=== PATIENT | female | born 1955 | race Caucasian/White ===

== ENCOUNTER 2025-03-09 10:33 | Emergency (ER) | payer OTHER, MEDICAID ==
[~2025-03-09] VITALS: Ht 167.6 cm; Wt 139.9 kg
[2025-03-09 11:51] VITALS: BP 131/88; PULSE 102; RESP 20; TEMP 97.9; O2SAT 95
[2025-03-09] MEDS: NEOMYCIN-BACITRACIN-POLYM UNITDOSE PKG TOP OINT TOP ONE (11:51)
[2025-03-09] MEDS: methylPREDNISolone SOD SUCC 125 MG/2 ML VL IM ONE (12:20)
[2025-03-09] MEDS: KETOROLAC TROMETH 30 MG/ML 1ML VIAL IM ONE (12:20)
--- NOTE | 2025-03-09 13:20 | ED.PDOC ---
Back pain HPI HPI Comments 69 year F presents for RLBP that radiates down the right posterior leg. In his aggravated with prolonged ambulation and standing in his alleviated at rest. Taking gabapentin and ibuprofen with some improvement. Denies history of chronic steroid use or history of osteoporosis Denies any history of cancer Denies fevers chills night sweats nausea vomiting unintentional weight loss Denies IV drug use history of HIV/TB Denies abdominal "tearing" pain Denies syncope Denies urinary incontinence or urinary changes Denies numbness tingling of the groin or inner thigh Denies previous back procedure or surgery Chief Complaint: Fall Injury Time Seen by MD: 11:33 Primary Care Provider: RADHA Reviewed Notes: Nurses Notes, Medications, Allergies Allergies: Coded Allergies: Cephalexin (Verified Allergy, Unknown, 03/09/25) Penicillins (Verified Allergy, Unknown, 03/09/25) Information Source: Patient Mode of Arrival: Ambulatory Past Medical History PAST MEDICAL HISTORY: DM, HTN Surgical History: Denies all surgeries DIALYSIS EQUIPMENT TECHNICIAN History: No Pertinent DIALYSIS EQUIPMENT TECHNICIAN History Family History Family History: Reviewed,noncontributory to illness Social History Smoker: Non-Smoker Alcohol: Denies ETOH Use Drugs: Denies Drug Use All Other Systems: Reviewed and Negative (PER HPI) Physical Exam General Appearance: No Apparent Distress, Normal HEENT: Normal ENT Inspection, Pharynx Normal, TMs Normal Neck: Full Range of Motion, Non-Tender, Normal, Normal Inspection Respiratory: Chest Non-Tender, Lungs Clear, No Accessory Muscle Use, No Respiratory Distress, Normal Breath Sounds Cardiovascular: No Edema, No JVD, No Murmur, No Gallop, Normal Peripheral Pulses, Regular Rate/Rhythm Breast Exam: Deferred Gastrointestinal: No Organomegaly, Non Tender, No Pulsatile Mass, Normal Bowel Sounds, Soft Genitalia: Deferred Pelvic: Deferred Rectal: Deferred Extremities: No calf tenderness, Normal capillary refill, Normal inspection, Normal range of motion, Non-tender, No pedal edema Musculoskeletal : Apperance: Normal Neurologic: Alert, cell cleaner II-XII nml as Tested, No Motor Deficits, Normal Affect, Normal Mood, No Sensory Deficits Cerebellar Function: Normal Reflexes: Normal Skin: Dry, Normal Color, Warm Lymphatic: No Adenopathy Was a procedure done? Was a procedure done?: No Images 1 - Lumbar paraspinal tenderness to palpation. Right straight leg raise test positive. No bony step-offs on palpation. Back Pain Differential Dx Differential Diagnosis: Musculoskeletal Pain X-Ray, Labs, Meds, VS Vital Signs Date Time Temp Pulse Resp B/P (MAP) Pulse Ox O2 Delivery O2 Flow Rate FiO2 03/09/25 11:51 97.9 102 18 131/88 (102) 95 97.9 03/09/25 11:51 102 20 95 Room Air 03/09/25 10:44 97.4 104 20 128/90 (103) 95 97.4 Current Medications Medications (Trade) Dose Ordered Sig/Adam Route Start Time Stop Time Status Last Admin Ketorolac Tromethamine (Toradol Injection) 30 mg ONCE ONCE IM 03/09/25 12:15 03/09/25 12:16 DC 03/09/25 12:20 Methylprednisolone Sodium Succinate (Solu Medrol) 125 mg ONCE ONCE IM 03/09/25 12:15 03/09/25 12:16 DC 03/09/25 12:20 X-Ray, Labs, Meds, VS Comment Given patient's history and exam: Sciatica, cord compression, cauda equina, aortic dissection, Guillain-[place] syndrome, epidural hematoma/abscess were all considered. Patient not toxic or ill-appearing. Vital signs within acceptable limits. Positive straight leg raise on exam with tenderness to the buttock consistent with sciatica. No vertebral point tenderness noted over the T or L- spine. No paraspinal muscle tenderness noted. No fever or IV drug use the. The differential for an acute vascular, neurologic, malignant, or infectious etiologies is much less likely given his/her presentation. The patient does not warrant a radiological exam at this time. The patient was given medication for pain control in the ED. Advised patient to try to take alternating Ibuprofen and Tylenol to help with inflammation of the sciatic nerve and surrounding tissues and should try to do low back stretches but also try to rest and avoid excessive sitting and bending. On reassessment, the patient's symptoms improved, and patient was able to ambulate without assistive devices. The patient will f/u with PMD to see if his/her symptoms noreen. An MRI may need to be ordered if the symptoms worsen or do not improve over time. The patient was counseled in regard to the diagnosis and management of the condition and verbalized understanding of this. The patient understands to return to the ER or seek immediate medical attention if the symptoms worsen or return. Time of 1ST Reevaluation: 13:19 Reevaluation 1ST: Improved Patient Education/Counseling: Diagnosis, Treatment Family Education/Counseling: Diagnosis, Treatment Departure 1 Departure Time of Disposition: 13:20 Impression: Primary Impression: Lumbar radiculopathy Disposition: 01 HOME / SELF CARE / HOMELESS Condition: Stable Critical Care Note Critical Care Time?: No Stability Stability form required: No Heart Score Heart Score: Heart Score Response (Comments) Value History N/A 0 EKG N/A 0 Age N/A 0 Risk Factors N/A 0 Troponin N/A 0 Total 0 BRO DE LA PAZ UNITIZER March 09, 2025 13:20
== END 2025-03-09 13:22 | disposition home or self-care (01) ==
LOC: ER 10:33
DX: M54.16 Radiculopathy, lumbar region (principal); M79.661 Pain in right lower leg; I10 Essential (primary) hypertension; E11.9 Type 2 diabetes mellitus without complications; Z88.0 Allergy status to penicillin; Z88.1 Allergy status to other antibiotic agents
CPT/HCPCS: 96372; 99284; J1885; J2919

== ENCOUNTER 2025-03-17 08:00 | Emergency (ER) | payer OTHER, MEDICAID ==
[~2025-03-17] VITALS: Ht 167.6 cm; Wt 143.8 kg
[2025-03-17 08:33] VITALS: BP 130/66; PULSE 65; RESP 16; TEMP 98.3; O2SAT 97
--- NOTE | 2025-03-17 09:58 | DVH ---
EXAM: XY R KNEE 3V XRAY HISTORY: fall. r/o fracture COMPARISON: None TECHNIQUE: 3 views of the right knee were performed. FINDINGS: No acute fracture is identified about the right knee. There are tricompartmental marginal osteophyte s. There is moderate joint space narrowing of the medial compartment. There is a quadriceps tendon i nsertion enthesophyte on the superior pole of the patella. No evidence of significant joint effusion . IMPRESSION: Degenerative changes of the right knee without evidence of acute fracture.
--- NOTE | 2025-03-17 10:04 | DVH ---
CLINICAL INDICATION: trauma. r/o fracture TECHNIQUE: 3 radiographic views of the right hip were obtained. Comparison: None FINDINGS/IMPRESSION: There is no evidence of acute fracture or dislocation. The visualized joint space is well maintained. The alignment is anatomical. There is no radiopaque foreign body.
[2025-03-17] MEDS ORDERED: DICL1GEL59 EX (10:22)
[2025-03-17] MEDS ORDERED: MELO7.5T7 PO (10:22)
[2025-03-17] MEDS ORDERED: ACET500T58 PO (10:22)
--- NOTE | 2025-03-17 10:23 | ED.PDOC ---
Musculoskeletal HPI Comments 69 year F presents for RLBP that radiates down the right posterior leg. Seen 1 week ago for same complaint. Onset occurred after patient had a fall in her living room. Reports that her knee gave out causing heard hit her hip on her recliner and pain has been persistent since. Pain is aggravated with prolonged ambulation and standing in his alleviated at rest. Taking gabapentin and ibuprofen with some improvement. Denies history of chronic steroid use or history of osteoporosis Denies any history of cancer Denies fevers chills night sweats nausea vomiting unintentional weight loss Denies IV drug use history of HIV/TB Denies abdominal "tearing" pain Denies syncope Denies urinary incontinence or urinary changes Denies numbness tingling of the groin or inner thigh Denies previous back procedure or surgery Chief Complaint: Lower Extremity Time Seen by MD: 08:17 Primary Care Provider: NICK GARCIA Reviewed Notes: Nurses Notes, Medications, Allergies Allergies: Coded Allergies: Cephalexin (Verified Allergy, Unknown, 03/09/25) Penicillins (Verified Allergy, Unknown, 03/09/25) Information Source: Patient Mode of Arrival: Ambulatory Past Medical History PAST MEDICAL HISTORY: DM, HTN Surgical History: Denies all surgeries GREENSMAN History: No Pertinent GREENSMAN History Family History Family History: Reviewed,noncontributory to illness Social History Smoker: Non-Smoker Alcohol: Denies ETOH Use Drugs: Denies Drug Use All Other Systems: Reviewed and Negative (PER HPI) Physical Exam General Appearance: No Apparent Distress, Normal HEENT: Normal ENT Inspection, Pharynx Normal, TMs Normal Neck: Full Range of Motion, Non-Tender, Normal, Normal Inspection Respiratory: Chest Non-Tender, Lungs Clear, No Accessory Muscle Use, No Respiratory Distress, Normal Breath Sounds Cardiovascular: No Edema, No JVD, No Murmur, No Gallop, Normal Peripheral Pulses, Regular Rate/Rhythm Breast Exam: Deferred Gastrointestinal: No Organomegaly, Non Tender, No Pulsatile Mass, Normal Bowel Sounds, Soft Genitalia: Deferred Pelvic: Deferred Rectal: Deferred Extremities: No calf tenderness, Normal capillary refill, Normal inspection, Normal range of motion, Non-tender, No pedal edema Musculoskeletal : Apperance: Normal Neurologic: Alert, rn medical surgical II-XII nml as Tested, No Motor Deficits, Normal Affect, Normal Mood, No Sensory Deficits Cerebellar Function: Normal Reflexes: Normal Skin: Dry, Normal Color, Warm Lymphatic: No Adenopathy Was a procedure done? Was a procedure done?: No Images 1 - Localized lumbar paraspinal TTP. Differential Diagnosis EXT Differential Diagnosis: Fracture, Sprain, Arthritis X-Ray, Labs, Meds, VS Vital Signs Date Time Temp Pulse Resp B/P (MAP) Pulse Ox O2 Delivery O2 Flow Rate FiO2 03/17/25 08:33 98.3 65 16 130/66 (87) 97 98.3 03/17/25 08:32 65 16 97 Room Air 03/17/25 08:32 98.3 65 16 130/66 (87) 97 98.3 PATIENT: MICHAEL ENRIQUECCT: [id number]: [id number] : 1955 LOC: ER ROOM / BED: / AGE / SEX: 69 / F ADM STATUS: REG ER SERVICE 2 ORDERING PHYSICIAN: BRO DE LA PAZ MANAGER RESPIRATORY CARE PROCEDURE(s): RHIP - R HIP COMPLETE XRAY REASON: fall. r/o fracture ORDER NUMBER(s): [id number], ACCESSION NUMBER(s): [id number] CLINICAL INDICATION: trauma. r/o fracture TECHNIQUE: 3 radiographic views of the right hip were obtained. Comparison: None FINDINGS/IMPRESSION: There is no evidence of acute fracture or dislocation. The visualized joint space is well maintained. The alignment is anatomical. There is no radiopaque foreign body. ATED BY: BETH GUERIN MD DICTATED DATE/TIME: 03/17/251001 SIGNED BY: BETH GUERIN MD SIGNED DATE/TIME: 03/17/251001 CC: PATIENT: MICHAEL ENRIQUE ACCT: [id number] UNIT: [id number] : 1955 LOC: ER ROOM / BED: / AGE / SEX: 69 / F ADM STATUS: REG ER SERVICE 2 ORDERING PHYSICIAN: BRO DE LA PAZ MANAGER RESPIRATORY CARE PROCEDURE(s): RKN3 - R KNEE 3V XRAY REASON: fall. r/o fracture ORDER NUMBER(s): [id number], ACCESSION NUMBER(s): [id number] EXAM: XY R KNEE 3V XRAY HISTORY: fall. r/o fracture COMPARISON: None TECHNIQUE: 3 views of the right knee were performed. FINDINGS: No acute fracture is identified about the right knee. There are tricompartmental marginal osteophytes. There is moderate joint space narrowing of the medial compartment. There is a quadriceps tendon insertion enthesophyte on the superior pole of the patella. No evidence of significant joint effusion. IMPRESSION: Degenerative changes of the right knee without evidence of acute fracture. ATED BY: MEGHANN GALINDO MD DICTATED DATE/TIME: 03/17/25954 SIGNED BY: MEGHANN GALINDO MD SIGNED DATE/TIME: 03/17/25954 CC: X-Ray, Labs, Meds, VS Comment Presentation most consistent with nonemergent musculoskeletal etiology ED workup: Defer further imaging and lab work for outpatient follow up at this time Disposition: Discharge. Strict return precautions discussed with the patient with full understanding. Supportive care advised (rest, ice, heat, NSAIDs, stretching exercises) Massage muscles with cold pack or ice for 20 minutes 4 times per day. Usually most useful if there is swelling during the first 48 hours Heating pad on the most painful area for 20 minutes to relieve muscle spasm Sleep and the most comfortable sleeping position (usually on the side with knees bent) Light stretching, no strenuous activity, avoid frequent bending, avoid carrying heavy objects Discussed possible benefits of yoga and acupuncture Additional MDM Review of External, Non-ED records: External records reviewed. Discussion with independent historian (EMS, family) history obtained from the patient at bedside Chronic conditions affecting care: None Social determinants of health affecting care: None Consideration of admission (observation or admission): I considered escalation of care to admission for this patient, however given the reassuring workup, the patient is safe for outpatient management. Time of 1ST Reevaluation: 10:17 Reevaluation 1ST: Improved Patient Education/Counseling: Diagnosis, Treatment Family Education/Counseling: Diagnosis, Treatment Departure 1 Departure Time of Disposition: 10:21 Impression: Primary Impression: Right knee DJD Qualified Codes: M17.11 - Unilateral primary osteoarthritis, right knee Disposition: 01 HOME / SELF CARE / HOMELESS Condition: Fair e-Prescriptions Diclofenac Sodium (Topical) (Voltaren Arthritis Pain) 1 % Gel 1 APPLIC EX Q6HP PRN for 30 Days, #60 GRAMS 0 Refills Prov: BRO DE LA PAZ NP 03/17/25 Acetaminophen (Acetaminophen) 500 Mg Tab 500 MG PO Q6HP PRN for 10 Days, #40 TAB 0 Refills Prov: BRO DE LA PAZ NP 03/17/25 Meloxicam (Meloxicam) 7.5 Mg Tab 1 TAB PO DAILY for 30 Days, #30 TAB 0 Refills Prov: BRO DE LA PAZ NP 03/17/25 Critical Care Note Critical Care Time?: No Stability Stability form required: No Heart Score Heart Score: Heart Score Response (Comments) Value History N/A 0 EKG N/A 0 Age N/A 0 Risk Factors N/A 0 Troponin N/A 0 Total 0 BRO DE LA PAZ NP March 17, 2025 10:23
== END 2025-03-17 10:24 | disposition home or self-care (01) ==
LOC: ER 08:00
DX: M17.11 Unilateral primary osteoarthritis, right knee (principal); M25.551 Pain in right hip; I10 Essential (primary) hypertension; E11.9 Type 2 diabetes mellitus without complications; Z88.0 Allergy status to penicillin; Z88.1 Allergy status to other antibiotic agents
CPT/HCPCS: 73502; 73562

== ENCOUNTER 2025-07-26 17:02 | Inpatient (IN) | payer OTHER, MEDICAID ==
[~2025-07-26] VITALS: Ht 167.6 cm; Wt 154.8 kg
[~2025-07-26 17:02] MED LIST: ACET500T58 PO; ALBU108A5 INH; ALLO300T2 PO; AMLO1TAB21 PO; DICL1GEL59 EX; GABA-1250 PO; IRBE300T43 PO; LORA-483 PO; MELO7.5T7 PO; ROSU5TAB24 PO; SUMA100T15 PO; TOPI25TA84 PO; TORS5TAB8 PO
--- NOTE | 2025-07-26 18:06 | ED.PDOC ---
HPI Comments This is a 70 year old female presenting to the ED with chief complaint of leg swelling. Patient reports that she has been experiencing bilateral leg swelling with associated blisters for the past 2 weeks. Patient relays that she is now also experiencing chest pressure with associated SOB and dyspnea on exertion for the past 3 days. Patient states that she has been taking her Torsemide as directed, however notes that since being changed from furosemide to torsemide, she has developed worsening edema. Patient denies any cough, fever, chills, SOB at rest, dizziness, or syncope. Chief Complaint: Extremity Swelling Time Seen by MD: 18:03 Primary Care Provider: NICK GARCIA Reviewed Notes: Nurses Notes, Medications, Allergies Allergies: Coded Allergies: Cephalexin (Verified Allergy, Unknown, 03/09/25) Penicillins (Verified Allergy, Unknown, 03/09/25) Home Meds Active Scripts Diclofenac Sodium (Topical) (Voltaren Arthritis Pain) 1 % Gel, 1 APPLIC EX Q6HP PRN for 30 Days, #60 GRAMS 0 Refills Prov:[employer] 03/17/25 Acetaminophen (Acetaminophen) 500 Mg Tab, 500 MG PO Q6HP PRN for 10 Days, #40 TAB 0 Refills Prov:[employer] 03/17/25 Meloxicam (Meloxicam) 7.5 Mg Tab, 1 TAB PO DAILY for 30 Days, #30 TAB 0 Refills Prov:[employer] 03/17/25 Information Source: Patient Mode of Arrival: Ambulatory Severity: Moderate Timing: Weeks Duration: Since onset Prehospital treatment: None Location: Substernal Radiation: No Radiation Quality: Pressure Onset: At Rest Cardiac Risk Factors: Hyperlipidemia, HTN PE Risk Factors: None History of: Similar pain in past Associated Signs and Symptoms: SOB, Calf Swelling Past Medical History PAST MEDICAL HISTORY: CHF, COPD, High Lipids, HTN Past Medical History (Other): Gout Surgical History: Denies all surgeries SCOUT History: No Pertinent SCOUT History Family History Family History: Reviewed,noncontributory to illness Social History Smoker: Non-Smoker Alcohol: Denies ETOH Use Drugs: Denies Drug Use Lives In: Home Constitutional: denies: chills, diaphoresis, fatigue, fever, malaise, sweats, weakness, others EENTM: denies: blurred vision, double vision, ear bleeding, ear discharge, ear drainage, ear pain, ear ringing, eye pain, eye redness, hearing loss, mouth pain, mouth swelling, nasal discharge, nose bleeding, nose congestion, nose pain, photophobia, tearing, throat pain, throat swelling, voice changes, others Respiratory: reports: SOB with excertion; denies: cough, hemoptysis, orthopnea, SOB at rest, shortness of breath, stridor, wheezing, others Cardiovascular: reports: chest pain, edema; denies: dizzy spells, diaphoresis, Dyspnea on exertion, irregular heart beat, left arm pain, lightheadedness, palpitations, PND, syncope, others Gastrointestinal: denies: abdomen distended, abdominal pain, blood streaked bowels, constipated, diarrhea, dysphagia, difficulty swallowing, hematemesis, melena, nausea, poor appetite, poor fluid intake, rectal bleeding, rectal pain, vomiting, others Genitourinary: denies: abnormal vagina bleeding, burning, dyspareunia, dysuria, flank pain, frequency, hematuria, incontinence, pain, , vagina discharge, urgency, others Neurological: denies: dizziness, fainting, headache, left sided numbness, left sided weakness, numbness, paresthesia, pre-existing deficit, right sided numbness, right sided weakness, seizure, speech problems, tingling, tremors, weakness, others Musculoskeletal: denies: back pain, gout, joint pain, joint swelling, muscle pain, muscle stiffness, neck pain, others Integumetry: denies: bruises, change in color, change in hair/nails, dryness, laceration, lesions, lumps, rash, wounds, others Allergic/Immunocompromised: denies: Difficulty Healing, Frequent Infections, Hives, Itching, others Hematologic/Lymphatic: denies: anemia, blood clots, easy bleeding, easy bruising, swollen glands, others Endocrine: denies: excessive hunger, excessive sweating, excessive thirst, excessive urination, flushing, intolerance to cold, intolerance to heat, unexplained weight gain, unexplained weight loss, others Psychiatric: denies: anxiety, bipolar disorder, depression, hopeless, panic disorder, schizophrenia, sleepless, suicidal, others All Other Systems: Reviewed and Negative Physical Exam General Appearance: No Apparent Distress, Obese HEENT: Other (Pupils and face symmetric. Moist mucous membranes.) Neck: Full Range of Motion, Normal Inspection Respiratory: Decreased Breath Sounds, No Accessory Muscle Use, No Respiratory Distress, Rales (Bibasilar) Cardiovascular: No JVD, Regular Rate/Rhythm Breast Exam: Deferred Gastrointestinal: Non Tender, Soft Genitalia: Deferred Pelvic: Deferred Rectal: Deferred Extremities: Leg edema, Pedal edema, Other (Bilateral lower extremity 3+ pitting edema with scattered early scabbed lesions) Neurologic: Alert (Oriented x4), Normal Affect, Normal Mood, Other (Ambulatory) Cerebellar Function: NOT DONE Reflexes: NOT DONE Skin: Dry, Warm, Other (Mild erythema bilateral legs with scattered early scabbed lesions. ) Lymphatic: NOT DONE Was a procedure done? Was a procedure done?: No CP Differential Dx Differential Diagnosis: Heart Failure, ME, Pulmonary Embolus Other Differential Diagnosis CHF/COPD exacerbation, cellulitis, lymphedema, venous insufficiency, among others Differential Diagnosis: Pneumonia X-Ray, Labs, Meds, VS Vital Signs Date Time Temp Pulse Resp B/P (MAP) Pulse Ox O2 Delivery O2 Flow Rate FiO2 07/26/25 19:19 20 95 Room Air* 0 21 07/26/25 17:11 84 07/26/25 17:09 98.5 90 24 113/63 94 98.5 Lab Test 07/26/25 19:31 07/26/25 18:31 Range/Units Troponin I High Sensitivity < 3 L < 3 L </=34 ng/L White Blood Count 7.4 4.4-10.8 10^3/uL Red Blood Count 4.10 4.0-5.20 10^6/uL Hemoglobin 12.4 12.2-16.2 g/dL Hematocrit 36.9 36.0-46.0 % Mean Corpuscular Volume 89.9 80.0-100.0 fL Mean Corpuscular Hemoglobin 30.3 28.0-32.0 pg Mean Corpuscular Hemoglobin Concent 33.7 32.0-36.0 g/dL Red Cell Distribution Width 13.5 11.8-14.3 % Platelet Count 282 140-450 10^3/uL Mean Platelet Volume 7.2 6.9-10.8 fL Neutrophils (%) (Auto) 65.4 37.0-80.0 % Lymphocytes (%) (Auto) 22.2 10.0-50.0 % Monocytes (%) (Auto) 9.1 0.0-12.0 % Eosinophils (%) (Auto) 2.0 0.0-7.0 % Basophils (%) (Auto) 1.3 0.0-2.0 % Neutrophils # (Auto) 4.8 1.6-8.6 10 ^3/uL Lymphocytes # (Auto) 1.6 0.4-5.4 10 ^3/uL Monocytes # (Auto) 0.7 0-1.3 10 ^3/uL Eosinophils # (Auto) 0.1 0-0.8 10 ^3/uL Basophils # (Auto) 0.1 0-0.2 10 ^3/uL Nucleated Red Blood Cells 0.1 % Prothrombin Time 10.3 9.3-11.8 sec Prothrombin Time INR 0.97 0.9-1.15 Activated Partial Thromboplast Time 28.2 24.5-34.5 SEC Sodium Level 144 136-145 mmol/L Potassium Level 4.5 3.5-5.1 mmol/L Chloride Level 107 98-107 mmol/L Carbon Dioxide Level 28 20-31 mmol/L Anion Gap 9 5-15 Blood Urea Nitrogen 14 9-23 mg/dL Creatinine 0.92 0.550-1.02 mg/dL Glomerular Filtration Rate Calc 68 >90 mL/min BUN/Creatinine Ratio 15.2 10.0-20.0 Serum Glucose 88 74-106 mg/dL Calcium Level 9.0 8.7-10.4 mg/dL B-Type Natriuretic Peptide 32.79 0-100 pg/mL Current Medications Medications (Trade) Dose Ordered Sig/Adam Route Start Time Stop Time Status Last Admin Albuterol (Ventolin Medneb) 5 mg ONCE ONCE NEB 07/26/25 18:15 07/26/25 18:16 DC 07/26/25 19:18 Ipratropium Cobb (Atrovent Medneb) 0.5 mg ONCE ONCE NEB 07/26/25 18:15 07/26/25 18:16 DC 07/26/25 19:19 PROCEDURE(s): CXRP - CHEST PORTABLE REASON: sob ORDER NUMBER(s): [id number], ACCESSION NUMBER(s): [id number] CHEST RADIOGRAPH Indication: sob Technique: XY CHEST PORTABLE COMPARISON: None FINDINGS: The cardiac silhouette is enlarged. The lungs demonstrate bilateral patchy airspace opacities. The pulmonary vasculature is prominent. Small right pleural effusion. Aortic atherosclerotic disease. There is no pneumothorax. IMPRESSION: Cardiomegaly with pulmonary vascular congestion and bilateral patchy airspace opacities. Small left pleural effusion. EDURE(s): BLDVT - BiLat Lower DVT REASON: ble edema ORDER NUMBER(s): [id number], ACCESSION NUMBER(s): [id number] Technique: Real-time ultrasound imaging, with color Doppler and compression of the bilateral common femoral vein, femoral vein, greater saphenous vein, and popliteal vein. Indication: ble edema Comparison: None Findings: There is normal compressibility and flow augmentation in all of the imaged deep veins. There are no filling defects. Impression: No evidence of DVT in the bilateral lower extremities X-Ray, Labs, Meds, VS Comment 70-year-old female with a history of hypertension, morbid obesity, CHF, COPD, gout and dyslipidemia complaining of chest discomfort, shortness a breath and leg edema Vitals remarkable for respiratory rate 24, oxygen saturation 94% on room air mild hypoxia Exam remarkable for diminished breath sounds and slight rales at bilateral lung bases, 3+ pitting lower extremity edema Rhythm strip independently interpreted by me: Sinus rhythm, rate 90, no ectopy. Chest x-ray IMPRESSION: Cardiomegaly with pulmonary vascular congestion and bilateral patchy airspace opacities. Small left pleural effusion. CBC, basic metabolic panel, BNP and 2 serial troponins unremarkable Patient treated with the following in the ED: Albuterol 5 mg/Atrovent 0.5 mg nebulized, Solu-Medrol 125 mg IV, Bumex 1 mg IV, Rocephin 1 g IV, Zithromax 500 mg IV Re-evaluation, patient states shortness breath has improved. Vitals were stable. Plan is to admit the patient for diuresis, respiratory support and IV antibiotics Time of 1ST Reevaluation: 19:02 Reevaluation 1ST: Unchanged Patient Education/Counseling: Diagnosis, Treatment Family Education/Counseling: No Family Present SEPSIS Sepsis Screen Date sepsis recognized/suspect: Jul 26, 2025 Time Sepsis recognized/suspect: 1708 Recent Procedure: No On Antibiotic Therapy: No Respiratory Rate >20: No Heart Rate >90: No Temp<36 C (96.8 F) or >38.3 C: No SBP <90 or MAP <65 mmHG: No New Acute Mental Status Change: No Is the patient on CPAP, BIPAP,: No Physician Orders Electrocardigram (07/26/25 17:15) Chest Portable (07/26/25 18:01) Urinalysis (07/26/25 18:01) Bilat Lower Dvt (07/26/25 18:01) Troponin-I Hs (07/26/25 21:01) Vital Signs Date Time Temp Pulse Resp B/P (MAP) Pulse Ox O2 Delivery O2 Flow Rate FiO2 07/26/25 19:19 20 95 Room Air* 0 21 07/26/25 17:11 84 07/26/25 17:09 98.5 90 24 113/63 94 98.5 Laboratory Tests Test 07/26/25 18:31 White Blood Count 7.4 10^3/uL (4.4-10.8) Medications Medications Dose Ordered Sig/Adam Route Start Time Stop Time Status Last Admin Dose Admin Albuterol 5 mg ONCE ONCE NEB 07/26/25 18:15 07/26/25 18:16 DC 07/26/25 19:18 Ipratropium Cobb 0.5 mg ONCE ONCE NEB 07/26/25 18:15 07/26/25 18:16 DC 07/26/25 19:19 Departure 1 Departure Time of Disposition: 20:16 Impression: Primary Impression: Pneumonia Additional Impressions: CHF exacerbation COPD exacerbation Disposition: ADMITTED INPATIENT Admit to: [facility] Condition: Guarded Critical Care Note Critical Care Time?: No Stability Stability form required: No Heart Score Heart Score: Heart Score Response (Comments) Value History Highly Suspicious 2 EKG Repolarization Disturb 1 Age >65 2 Risk Factors >3 or Hx ASHD 2 Troponin Normal limit 0 Total 7 I personally scribed for EDWIGE JAEGER MD ([email or web address]) on 07/26/25 at 18:06. Electronically submitted by Blas Sewell ([email or web address]). EDWIGE JAEGER MD Jul 26, 2025 18:06
--- NOTE | 2025-07-26 18:36 | DVH ---
Technique: Real-time ultrasound imaging, with color Doppler and compression of the bilateral common femoral vein, femoral vein, greater saphenous vein, and popliteal vein. Indication: ble edema Comparison: None Findings: There is normal compressibility and flow augmentation in all of the imaged deep veins. There are no f illing defects. Impression: No evidence of DVT in the bilateral lower extremities
--- NOTE | 2025-07-26 18:41 | DVH ---
CHEST RADIOGRAPH Indication: sob Technique: XY CHEST PORTABLE COMPARISON: None FINDINGS: The cardiac silhouette is enlarged. The lungs demonstrate bilateral patchy airspace opacities. The pu lmonary vasculature is prominent. Small right pleural effusion. Aortic atherosclerotic disease. Ther e is no pneumothorax. IMPRESSION: Cardiomegaly with pulmonary vascular congestion and bilateral patchy airspace opacities. Small left pleural effusion.
[2025-07-26 18:43] LABS: Hematocrit 36.9 % (36.0-46.0); Hemoglobin 12.4 g/dL (12.2-16.2); Mean Corpuscular Hemoglobin 30.3 pg (28.0-32.0); Mean Corpuscular Volume 89.9 fL (80.0-100.0); Nucleated Red Blood Cells % 0.1 %
[2025-07-26 19:09] LABS: INR 0.97 (0.9-1.15); Partial Thromboplastin Time 28.2 SEC (24.5-34.5); Prothrombin Time 10.3 sec (9.3-11.8)
[2025-07-26] MEDS: ALBUTEROL SULF 2.5 MG/0.5ML(0.5%) NEB SOLN NEB ONE (19:18)
[2025-07-26] MEDS: IPRATROPIUM BROM 0.5 MG/2.5ML INH SOL NEB ONE (19:19)
[2025-07-26 19:20] LABS: Potassium 4.5 mmol/L (3.5-5.1); Sodium 144 mmol/L (136-145)
[2025-07-26 19:21] LABS: Anion Gap 9 (5-15); Calcium 9.0 mg/dL (8.7-10.4); Carbon Dioxide 28 mmol/L (20-31)
[2025-07-26 19:26] LABS: BUN/Creatinine Ratio 15.2 (10.0-20.0); Blood Urea Nitrogen 14 mg/dL (9-23); Glucose 88 mg/dL (74-106)
[2025-07-26 19:27] LABS: Chloride 107 mmol/L (98-107)
--- NOTE | 2025-07-26 20:20 | ECG ---
[facility] Test Date: 2025-07-26 Test Time: 17:11:17 Pat Name: MICHAEL ENRIQUE Department: ED Room: 0287T Gender: F Manager [employer]: KATHRYN : 1955 Requested By: EMERGENCY EMERGENCY Order Number: [id number] Reading MD: Roger Radford Measurements Intervals [place] Rate: 84 P: 35 [place]: 164 QRS: -11 QRSD: 97 T: 26 QT: 405 QTc: 479 Interpretive Statements Sinus rhythm Low voltage, precordial leads Left ventricular hypertrophy Anterior Q waves, possibly due to LVH Baseline wander in lead(s) I,II,aVR Electronically Signed On 07-27-2025 15:41:40 PDT by Roger Radford Please click the below link to view image of tracing.
[2025-07-26] MEDS ORDERED: DOCUSATE SOD 100 MG CAP PO PRN (20:30)
[2025-07-26] MEDS ORDERED: ACETAMINOPHEN 325 MG TAB PO PRN (20:30)
[2025-07-26] MEDS ORDERED: MORPHINE SULFATE INJ 2 MG/ml SYRG IV PRN (20:30)
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
[2025-07-26 22:00] VITALS: BP 113/63; PULSE 84; RESP 20; O2SAT 95
[2025-07-26 23:18] LABS: Alanine Aminotransferase 15.0 U/L (7-40); Albumin 4.2 g/dL (3.2-4.8); Bilirubin, Direct 0.2 mg/dL (<0.3); Bilirubin, Total 0.7 mg/dL (0.2-1.0); Cholesterol 139.0 mg/dL (< 200); HDL Cholesterol 45.0 mg/dL (40-59); Magnesium 2.0 mg/dL (1.6-2.6); Total Protein 7.4 g/dL (5.7-8.2); Triglycerides 139.0 mg/dL (< 150)
[2025-07-26 23:20] LABS: Alkaline Phosphatase 127.0 U/L (46-116)
[2025-07-26 23:50] LABS: Lipase 38.0 U/L (12-53)
[2025-07-27] VITALS (17 sets, daily range): BP systolic 104–135; BP diastolic 72–84; PULSE 64–98; RESP 16–20; TEMP 97.1–98.3; O2SAT 93–100
[2025-07-27] MEDS: LEVALBUTEROL HCL 1.25 MG/3 ML NEB NEB SCH (00:28)
[2025-07-27] MEDS: methylPREDNISolone SOD SUCC 40 MG/ML VL IV SCH (05:19)
[2025-07-27] MEDS: FUROSEMIDE 40 MG/4 ML VIAL IV SCH (05:22)
[2025-07-27] MEDS: AZITHROMYCIN 500MG/ 250ML 250 ML IV ONE (05:23)
[2025-07-27] MEDS: IPRATROPIUM BROM 0.5 MG/2.5ML INH SOL NEB SCH (06:48)
[2025-07-27] MEDS: BUMETANIDE 1mg/4ml VIAL (0.25mg/ml) IV ONE (07:27)
[2025-07-27] MEDS: FUROSEMIDE 40 MG/4 ML VIAL IV ONE (07:28)
[2025-07-27] MEDS: methylPREDNISolone SOD SUCC 125 MG/2 ML VL IV ONE (07:28)
[2025-07-27 07:51] LABS: Hematocrit 34.0 % (36.0-46.0); Hemoglobin 11.9 g/dL (12.2-16.2); Mean Corpuscular Hemoglobin 31.6 pg (28.0-32.0); Mean Corpuscular Volume 89.7 fL (80.0-100.0); Nucleated Red Blood Cells % 0.1 %
[2025-07-27 08:54] LABS: Alanine Aminotransferase 11 U/L (7-40); Chloride 106 mmol/L (98-107); Potassium 3.9 mmol/L (3.5-5.1)
[2025-07-27 09:01] LABS: Calcium 9.0 mg/dL (8.7-10.4); Carbon Dioxide 25 mmol/L (20-31)
[2025-07-27 09:06] LABS: BUN/Creatinine Ratio 13.4 (10.0-20.0); Blood Urea Nitrogen 13 mg/dL (9-23)
[2025-07-27 09:07] LABS: Total Protein 7.0 g/dL (5.7-8.2)
[2025-07-27 09:08] LABS: Albumin 4.0 g/dL (3.2-4.8); Bilirubin, Total 0.7 mg/dL (0.2-1.0)
[2025-07-27 09:24] LABS: Alkaline Phosphatase 125 U/L (46-116); Anion Gap 13 (5-15); Glucose 117 mg/dL (74-106); Sodium 144 mmol/L (136-145)
[2025-07-27] MEDS: KETOCONAZOLE 2 % TOPICAL CREAM 15GM TOP SCH (10:00)
--- NOTE | 2025-07-27 10:05 | DVHPN2 ---
Subjective Admitted for edema and cellulitis of both legs Changes from previous H/P or p: Changes Objective Vitals Vital Signs Date Time Temp Pulse Resp B/P (MAP) Pulse Ox O2 Delivery O2 Flow Rate FiO2 07/27/25 09:00 97.1 79 18 115/73 (87) 97 97.1 07/27/25 06:48 Room Air* 0 21 Intake/Output Intake and Output 07/27/25 07:00 Intake Total 100 ml Balance 100 ml Intake Oral 100 ml # Voids 1 General Appearance: Alert, Oriented X3, Cooperative Lungs: Clear to auscultation, Normal air movement Cardiovascular: Regular rate, Normal S1, Normal S2 Abdomen: Normal bowel sounds, Soft, No tenderness Extremities: Other (2+ edema BLE) Medications Current Medications Medications Dose Ordered Sig/Adam Route Start Time Stop Time Status Last Admin Dose Admin Acetaminophen 325 mg Q4HP PRN PO 07/26/25 20:30 Docusate Sodium 100 mg BIDPRN PRN PO 07/26/25 20:30 Enoxaparin Sodium 40 mg DAILY SC 07/27/25 10:00 Morphine Sulfate 2 mg Q4HPRN PRN IV 07/26/25 20:30 Levalbuterol HCl 0.625 mg Q6HR NEB 07/27/25 00:00 07/27/25 06:48 0.625 MG Ipratropium [place] 0.5 mg Q6HWA NEB 07/27/25 06:00 07/27/25 06:48 0.5 MG Azithromycin 250 ml @ 125 mls/hr DAILY IV 07/27/25 21:00 Furosemide 40 mg BIDD IV 07/27/25 06:00 07/27/25 05:22 40 MG Methylprednisolone Sodium Succinate 40 mg BID IV 07/26/25 22:00 07/27/25 05:19 40 MG Levofloxacin/ Dextrose 100 ml @ 100 mls/hr DAILY IV 07/27/25 10:00 Topiramate 25 mg BID PO 07/27/25 10:00 Allopurinol 300 mg DAILY PO 07/27/25 10:00 Atorvastatin Calcium 40 mg HS PO 07/27/25 22:00 Ketoconazole 1 applic DAILY TOP 07/27/25 10:00 Ergocalciferol 50,000 unit Q7D PO 07/27/25 10:00 Valsartan 80 mg DAILY PO 07/27/25 10:00 Laboratory Results Laboratory Tests 07/27/25 06:54 Chemistry Test 07/26/25 18:31 07/27/25 06:54 Albumin 4.2 g/dL (3.2-4.8) 4.0 g/dL (3.2-4.8) Calcium Level 9.0 mg/dL (8.7-10.4) 9.0 mg/dL (8.7-10.4) Magnesium Level 2.0 mg/dL (1.6-2.6) Phosphorus Level 2.4 mg/dL (2.4-5.1) Total Protein 7.4 g/dL (5.7-8.2) 7.0 g/dL (5.7-8.2) Coagulation Test 07/26/25 18: Prothrombin Time 10.3 sec (9.3-11.8) Prothrombin Time INR 0.97 (0.9-1.15) Activated Partial Thromboplast Time 28.2 SEC (24.5-34.5) Lipid panel Test 07/26/25 18:31 Cholesterol Level 139 mg/dL (< 200) HDL Cholesterol 45 mg/dL (40-59) Lipase 38 U/L (12-53) Triglycerides Level 139 mg/dL (< 150) Cardiac Markers Test 07/26/25 18:31 B-Type Natriuretic Peptide 32.79 pg/mL (0-100) LFT Test 07/26/25 18:31 07/27/25 06:54 Alanine Aminotransferase (ALT) 15 U/L (7-40) 11 U/L (7-40) Alkaline Phosphatase 127 U/L (46-116) H 125 U/L (46-116) H Aspartate Amino Transferase (AST) 23 U/L (13-40) 18 U/L (13-40) Direct Bilirubin 0.2 mg/dL (<0.3) Total Bilirubin 0.7 mg/dL (0.2-1.0) 0.7 mg/dL (0.2-1.0) HgA1c, TSH Test 07/26/25 18:31 07/26/25 19:31 Hemoglobin A1c 5.4 % A1C (<5.7) Thyroid Stimulating Hormone (TSH) 2.81 uIU/mL (0.55-4.78) Assessment/Plan Assessment/Plan Cellulitis BLE CHF COPD Morbid obesity PLAN: IV antibiotics IV Lasix Levaquin IV steroids Plan discussed with: Patient Date of Service: Jul 27, 2025 Billing Provider: JOANA PARNELL MD Common Visit Codes: NOT BILLABLE JOANA PARNELL MD Jul 27, 2025 10:05
[2025-07-27] MEDS: ALLOPURINOL 100 MG TAB PO SCH (11:29)
[2025-07-27] MEDS: ERGOCALCIFEROL 50,000 UNIT(1.25MG) CAP PO SCH (11:30)
[2025-07-27] MEDS: ENOXAPARIN SOD 40 MG/0.4 ML SYRINGE SC SCH (11:30)
[2025-07-27] MEDS: TOPIRAMATE 25 MG TAB PO SCH (11:30)
[2025-07-27] MEDS: VALSARTAN 80 MG TAB PO SCH (11:35)
[2025-07-27 12:42] LABS: Amphetamine Screen, Urine Neg (NEGATIVE); Barbiturate Scree,Urine Neg (NEGATIVE); Benzodiazephine Screen, Urine Neg (NEGATIVE); Cocaine Screen, Urine Neg (NEGATIVE); Phencyclidine Screen, Urine Neg (NEGATIVE)
[2025-07-27 12:49] LABS: Urine Protein, UAD Negative (Negative)
[2025-07-27 13:18] LABS: Cannabinoid Screen, Urine Neg (NEGATIVE); Opiate Scree,Urine Neg (NEGATIVE)
--- NOTE | 2025-07-27 18:08 | DVHSR ---
APPROVED REPORT EXAM: Two-dimensional and M-mode echocardiogram with Doppler and color Doppler. Blood Pressure: 127/85 mmHg INDICATION CHF RISK FACTORS Obesity: Height: 5'6", Weight: 302 DIMENSIONS LVDd4.7 (3.8-5.7cm)LA (2D)4.0 (1.9-4.0cm)Aortic Root3.7 (2.0-3.7cm) LVDs3.2 (2.5-4.0cm)LA (MM) (1.9-4.0cm)Aortic Cusp Exc1.9 (1.5-2.0cm) EF (%) 60.0 (55-70%)Rt. Atrium4.6 (1.9-4.0cm)Asc. Aorta cm IVSd1.1 (0.7-1.1cm)RV (D) (1.8-2.4cm) PWd1.0 (0.7-1.1cm) Mitral Valve MitralMitral Stenosis E wave1.18m/sMV Mean GR.mmHg A wave1.39m/sMV Peak GR.mmHg E/A ratio0.82D MVAcm2 DECEL [id number] 1/2 Tim[place] Aortic Valve Aortic ValveAortic Stenosis V11.05m/Thais Mean GR.8mmHg V21.99m/Thais Peak GR.16mmHg LVOT Diameter2.0 (1.8-2.4cm)Doppler AVA1.66cm2 Pulmonic Valve V21.10m/s Tricuspid Valve TR Velocity2.55m/s [id number] Other Information Technically limited study due to body habitus. Conclusion LV EF IS 65% AND IS NORMAL DYSKINESIS OF IVS SLIGHTLY DILATED RV NORMAL V FUNCTION AORTIC SCLEROSIS NORMAL MV,TV AND PV NO EFFUSION
[2025-07-27] MEDS: AZITHROMYCIN 500MG/ 250ML 250 ML IV SCH (21:05)
[2025-07-27] MEDS: ATORVASTATIN 20 MG TAB PO SCH (21:06)
[2025-07-28] VITALS (11 sets, daily range): BP systolic 125–133; BP diastolic 76–97; PULSE 63–94; RESP 16–20; TEMP 97.7–98.6; O2SAT 93–100
[2025-07-28] MEDS ORDERED: DOXY1CAP57 PO (10:00)
[2025-07-28] MEDS ORDERED: FURO1TAB31 PO (10:00)
--- NOTE | 2025-07-28 10:00 | DVHDS2 ---
Discharge Summary Date of Admission Jul 26, 2025 at 20:19 Date of Discharge: Jul 28, 2025 Labs/Diagnostic Data: Laboratory Results Test 07/27/25 12:12 07/27/25 06:54 07/26/25 23:17 07/26/25 19:31 Urine Color Colorless (Yellow) Urine Clarity Clear (Clear) Urine pH 6.5 (5.0-9.0) Urine Specific [place] 1.006 (1.001-1.035) Urine Protein Negative (Negative) Urine Ketones Negative (Negative) Urine Blood Negative /uL (Negative) Urine Nitrite Negative (Negative) Urine Bilirubin Negative (Negative) Urine Urobilinogen Normal mg/dL (Negative) Urine Leukocyte Esterase 1+ /uL (Negative) Urine RBC None seen /hpf (0 - 4) Urine Microscopic WBC 2 /HPF (0-5) Urine Squamous Epithelial Cells Few /hpf (<5) Urine Bacteria Few /hpf (None Seen) Urine Glucose Normal mg/dL (Normal) Urine Opiates Screen Neg (NEGATIVE) Urine Fentanyl Screen Neg (NEGATIVE) Urine Barbiturates Screen Neg (NEGATIVE) Urine Phencyclidine Screen Neg (NEGATIVE) Urine Amphetamines Screen Neg (NEGATIVE) Urine Benzodiazepines Screen Neg (NEGATIVE) Urine Cocaine Screen Neg (NEGATIVE) Urine Cannabinoids Screen Neg (NEGATIVE) White Blood Count 7.3 10^3/uL (4.4-10.8) Red Blood Count 3.79 10^6/uL (4.0-5.20) Hemoglobin 11.9 g/dL (12.2-16.2) Hematocrit 34.0 % (36.0-46.0) Mean Corpuscular Volume 89.7 fL (80.0-100.0) Mean Corpuscular Hemoglobin 31.6 pg (28.0-32.0) Mean Corpuscular Hemoglobin Concent 35.2 g/dL (32.0-36.0) Red Cell Distribution Width 13.6 % (11.8-14.3) Platelet Count 268 10^3/uL (140-450) Mean Platelet Volume 7.2 fL (6.9-10.8) Neutrophils (%) (Auto) 71.9 % (37.0-80.0) Lymphocytes (%) (Auto) 19.2 % (10.0-50.0) Monocytes (%) (Auto) 6.9 % (0.0-12.0) Eosinophils (%) (Auto) 1.2 % (0.0-7.0) Basophils (%) (Auto) 0.8 % (0.0-2.0) Neutrophils # (Auto) 5.2 10 ^3/uL (1.6-8.6) Lymphocytes # (Auto) 1.4 10 ^3/uL (0.4-5.4) Monocytes # (Auto) 0.5 10 ^3/uL (0-1.3) Eosinophils # (Auto) 0.1 10 ^3/uL (0-0.8) Basophils # (Auto) 0.1 10 ^3/uL (0-0.2) Nucleated Red Blood Cells 0.1 % Sodium Level 144 mmol/L (136-145) Potassium Level 3.9 mmol/L (3.5-5.1) Chloride Level 106 mmol/L (98-107) Carbon Dioxide Level 25 mmol/L (20-31) Anion Gap 13 (5-15) Blood Urea Nitrogen 13 mg/dL (9-23) Creatinine 0.97 mg/dL (0.550-1.02) Glomerular Filtration Rate Calc 64 mL/min (>90) BUN/Creatinine Ratio 13.4 (10.0-20.0) Serum Glucose 117 mg/dL (74-106) Calcium Level 9.0 mg/dL (8.7-10.4) Total Bilirubin 0.7 mg/dL (0.2-1.0) Aspartate Amino Transferase (AST) 18 U/L (13-40) Alanine Aminotransferase (ALT) 11 U/L (7-40) Alkaline Phosphatase 125 U/L (46-116) Total Protein 7.0 g/dL (5.7-8.2) Albumin 4.0 g/dL (3.2-4.8) Lactic Acid Level 1.8 mmol/L (0.4-2.0) Troponin I High Sensitivity < 3 ng/L (</=34) Thyroid Stimulating Hormone (TSH) 2.81 uIU/mL (0.55-4.78) Test 07/26/25 18:31 Prothrombin Time 10.3 sec (9.3-11.8) Prothrombin Time INR 0.97 (0.9-1.15) Activated Partial Thromboplast Time 28.2 SEC (24.5-34.5) Hemoglobin A1c 5.4 % A1C (<5.7) Phosphorus Level 2.4 mg/dL (2.4-5.1) Magnesium Level 2.0 mg/dL (1.6-2.6) Direct Bilirubin 0.2 mg/dL (<0.3) B-Type Natriuretic Peptide 32.79 pg/mL (0-100) Triglycerides Level 139 mg/dL (< 150) Cholesterol Level 139 mg/dL (< 200) LDL Cholesterol 82 mg/dL (< 100) HDL Cholesterol 45 mg/dL (40-59) Lipase 38 U/L (12-53) Vitamin B12 Level 359 pg/mL (211-911) Vitamin D 25-Hydroxy 31.2 ng/mL (30.0-100) Other Laboratory Tests 07/27/25 06:54 Brief Hx & Hospital Course: Final diagnoses: Cellulitis BLE CHF COPD Morbid obesity She was given IV antibiotics which improved her cellulitis in her legs significantly She was also given IV Lasix At home she was taking torsemide and she said she took furosemide in the past however she was switched to torsemide lately and since then her edema has worsened Discharged home today Switch from torsemide to furosemide 40 mg daily Doxycycline for the cellulitis Follow up with the primary care physician as soon as possible Condition at Discharge: Stable Final Diagnosis/Problems List Cellulitis BLE CHF COPD Morbid obesity Discharge Disposition: Home SNF Discharge Will this Physician continue t: No Discharge Instruct/Medications Scheduled Allopurinol (Allopurinol), 1 TAB PO DAILY, (Reported) Amlodipine Besylate (Amlodipine Besylate), 1 TAB PO DAILY, (Reported) Doxycycline Monohydrate (Doxycycline Monohydrate), 1 CAP PO BID Furosemide (Lasix), 40 MG PO DAILY Gabapentin (Gabapentin), 2 CAP PO BID PRN, (Reported) Irbesartan (Irbesartan), 1 TAB PO DAILY, (Reported) Loratadine (Claritin Tablet), 1 TAB PO DAILY, (Reported) Rosuvastatin Calcium (Rosuvastatin Calcium), 1 TAB PO DAILY, (Reported) Topiramate (Topiramate), 1 TAB PO BID, (Reported) Scheduled PRN Albuterol Sulfate (Albuterol Sulfate Hfa), 2 PUFF INH Q6HR PRN for WHEEZING, (Reported) Sumatriptan Succinate (Sumatriptan Succinate), 1 TAB PO DAILYP PRN for MIGRAINE W/O AURA, (Reported) Discontinued Medications Torsemide (Torsemide), 1 TAB PO DAILY, (Reported) Discharge Statement: "Patient was advised to return to the ER or call 911 if any headaches, dizziness, shortness of breath, chest pain, abdominal pain, bleeding, fevers, or worsening of medical condition. Patient was counseled about treatment plan, medications, possible side effects, patientverbalized understanding. All questions were answered to the best of my ability. This discharge took greater then 30 minutes in planning, reviewing documentation, counseling the patient, and discussing with other team members." ASSESSMENT ASSESSMENT Assessment Date of Service: Jul 28, 2025 Billing Provider: JOANA PARNELL MD Common Visit Codes: NOT BILLABLE JOANA PARNELL MD Jul 28, 2025 10:00
== END 2025-07-28 16:02 | disposition home or self-care (01) | DRG 602 ==
LOC: ER 17:02 → OVERFLOW 20:19 → TELE-WESTW 07-27 01:57
PROVIDERS: ADMIT Internal Medicine Geriatric Medicine; ATTEND Internal Medicine Geriatric Medicine
PROC: 5A09357 Assistance with Respiratory Ventilation, Less than 24 Consecutive Hours, Continuous Positive Airway Pressure (ICD-10-PCS; principal; 2025-07-27)
DX: L03.115 Cellulitis of right lower limb (principal); I50.33 Acute on chronic diastolic (congestive) heart failure; J18.9 Pneumonia, unspecified organism; J44.1 Chronic obstructive pulmonary disease with (acute) exacerbation; J44.0 Chronic obstructive pulmonary disease with (acute) lower respiratory infection; Z68.43 Body mass index [BMI] 50.0-59.9, adult; I11.0 Hypertensive heart disease with heart failure; L03.116 Cellulitis of left lower limb; M10.9 Gout, unspecified; E66.01 Morbid (severe) obesity due to excess calories; E55.9 Vitamin D deficiency, unspecified; E03.9 Hypothyroidism, unspecified; G47.33 Obstructive sleep apnea (adult) (pediatric); Z79.899 Other long term (current) drug therapy; Z86.718 Personal history of other venous thrombosis and embolism; Z90.710 Acquired absence of both cervix and uterus; Z88.1 Allergy status to other antibiotic agents; Z88.0 Allergy status to penicillin
CPT/HCPCS: 36415; 71045; 80048; 80053; 80061; 80076; 80307; 81001; 82306; 82607; 83036; 83605; 83690; 83735; 83880; 84100; 84443; 84484; 85025; 85610; 85730; 93005; 93306; 93970; 94640; 94660; G0378; J1956